=== PATIENT | male | born 1995 | race African-American/Black ===

== ENCOUNTER 2024-05-02 11:54 | Emergency (ER) | payer SELFPAY ==
[~2024-05-02] VITALS: Ht 180.3 cm; Wt 82.0 kg
[2024-05-02] VITALS (14 sets, daily range): BP systolic 107–127; BP diastolic 70–88
[2024-05-02] MEDS ORDERED: SODIUM CHLORIDE 0.9% 1,000 ML IV STA (12:32)
[2024-05-02] MEDS ORDERED: Pantoprazole Sodium 40 MG VIAL (Protonix) IV STA (12:32)
[2024-05-02] MEDS ORDERED: ONDANSETRON HCl 4 MG/2 ML SDV IM ONE (12:35)
[2024-05-02] MEDS ORDERED: MORPHINE SULFATE 4 MG/ML VIAL IM ONE (12:40)
[2024-05-02 13:21] LABS: BASO% 0.6 % (0-3); EOS% 4.3 % (0-8); HEMATOCRIT 45.7 % (39.0-50.0); HEMOGLOBIN 15.8 g/dl (14.0-18.0); IMMATURE GRANULOCYTES 0.1 % (0.0-5.0); LYMPH% 30.2 % (15-41); MEAN CELL VOLUME 79.3 fL CALC (80.0-100.0); MEAN CORPUSCULAR HGB 27.4 pG CALC (26.0-32.0); MEAN CORPUSCULAR HGB CONC 34.6 g/dL CAL (32.0-36.0); MONO% 10.1 % (2-13); NEUT# 3.77 thou/uL (1.82-7.42); NEUT% 54.7 % (42-76); RED BLOOD COUNT 5.76 mill/uL (4.70-6.10)
[2024-05-02 13:34] LABS: ALBUMIN 4.4 g/dL (3.2-5.0); ALKALINE PHOSPHATASE 57 u/l (38-126); AMYLASE 112 u/l (30-110); ANION GAP 12 (6-22 (CALC)); BILIRUBIN, TOTAL 0.6 mg/dL (0.2-1.3); BUN 9 mg/dL (9-20); BUN/CREATININE RATIO 11 (12-20 (CALC)); CARBON DIOXIDE 28 mmol/l (22-30); CHLORIDE 106 mmol/l (95-108); CREATININE 0.9 mg/dL (0.7-1.3); ESTIMATED GFR 120 ML/MIN (>=90 (CALC)); POTASSIUM 4.1 mmol/l (3.5-5.1); SGOT/AST 34 u/l (17-59); SODIUM 142 mmol/l (137-146); TOTAL PROTEIN 8.1 g/dL (6.3-8.2)
[2024-05-02] MEDS ORDERED: MORPHINE SULFATE 4 MG/ML VIAL IV ONE (14:45)
[2024-05-02] MEDS ORDERED: OMEPRAZOLE DR20 M2 PO (15:46)
[2024-05-02] MEDS ORDERED: ONDANSETRON4 MG PO (15:46)
== END 2024-05-02 16:11 | disposition home or self-care (01) | DRG 392 ==
LOC: ED 11:54
PROVIDERS: Nurse Practitioner Family
DX: K21.9 Gastro-esophageal reflux disease without esophagitis (principal)
CPT/HCPCS: J2405; J2470; Q9967